=== PATIENT | female | born 1980 | race American Indian/Alaskan Native ===

== ENCOUNTER 2020-03-13 23:54 | Emergency (ER) | payer OTHER ==
[~2020-03-13] VITALS: Ht 157.5 cm; Wt 79.4 kg
[~2020-03-13 23:54] MED LIST: Colace 100MG PO; IRON1TAB4 PO; Mylicon 125MG PO; OXYC1TAB9 PO; PRENATE ADVANCE PO
[2020-03-14] MEDS ORDERED: ZOFRAN8 MG PO (05:20)
== END 2020-03-14 05:56 | disposition home or self-care (01) ==
LOC: ER 23:54
DX: K29.70 Gastritis, unspecified, without bleeding (principal); K80.20 Calculus of gallbladder without cholecystitis without obstruction; R10.13 Epigastric pain